=== PATIENT | male | born 1990 | race Caucasian/White ===

== ENCOUNTER 2022-09-09 15:11 | Emergency (ER) | payer OTHER ==
--- NOTE | 2022-09-09 16:12 | ED Physician Documentation ---
PD HPI MAJOR TRAUMA - Stated complaint Stated Complaint: FALL/L LEG PAIN - Chief complaint Chief Complaint: Trauma Ext - History obtained from History obtained from: Patient, Friend, EMS - History of Present Illness Mechanism of injury: Fell Where injury occurred: Work Timing - onset: Today Injury(ies) location: Neck, Left Lower Extremity Quality of pain: Pain (mild) Associated symptoms: Neck pain. 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 The first line was still attached and slowed his descent. He landed on his right side and is complaining of some mild pain to the neck a 1 out of 10 and to some mild pain to the left calf where he has a bruise he rates this pain as a 4. He is able to ambulate he did not lose consciousness and he has had no difficulty breathing no nausea or vomiting. Review of Systems Constitutional: denies: Fever Eyes: denies: Decreased vision Ears: denies: Ear pain Nose: denies: Congestion Throat: denies: Sore throat Cardiac: denies: Chest pain / pressure, Palpitations Respiratory: denies: Dyspnea, Cough GI: denies: Abdominal Pain, Nausea, Vomiting, Constipation, Diarrhea : denies: Dysuria, Frequency Skin: denies: Rash Musculoskeletal: reports: Neck pain, Extremity pain. denies: Back pain Neurologic: denies: Generalized weakness, Focal weakness, Numbness PD PAST MEDICAL HISTORY - Allergies Allergies/Adverse Reactions: Allergies Allergy/AdvReac Type Severity Reaction Status Date / Time No Known Drug Allergies Allergy Verified 09/09/22 15:50 PD ED PE NORMAL - Vitals Vital signs reviewed: Yes - General General: Alert and oriented X 3, No acute distress, Well developed/nourished - HEENT HEENT: Atraumatic, PERRL, EOMI - Neck Neck: Supple, no meningeal sign, Other (minimal ) - Cardiac Cardiac: RRR, No murmur - Respiratory Respiratory: No respiratory distress, Clear bilaterally, Other (no chest wall tenderness) - Abdomen Abdomen: Normal bowel sounds, Soft, Non tender, Non distended, No organomegaly - Back Back: No CVA TTP, No spinal TTP - Derm Derm: Normal color, Warm and dry, No rash - Extremities Extremities: No deformity, No edema, Other (abrasion to the medial left calf tender. no bony tenderness. 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 If symptoms persist, follow-up with radiographs and/or CT may be helpful for further evaluation.), EMP read indepedently, See rad report CT cervical spine Radiology: Prelim report reviewed (Impression: No acute fracture is seen. No pneumothorax is seen at the lung apices), EMP read indepedently, See rad report Procedures - FAST exam (time) 1600 FAST exam: Other (No free fluid is found in R or L upper quadrant or in the pelvis. No pericardial effusion.) PD MEDICAL DECISION MAKING - ED course Complexity details: reviewed results, re-evaluated patient, considered differential, d/w patient, d/w family ED course: 32-year-old male with a fall of about 50 feet from a tree. His fall appears to h ave been slowed by branches on the way down as well as his belaying rope still being attached. This looks like he obviously had enough support during his fall that he is not injured. We did CT his neck and x-ray his leg despite what appeared to be minimal injury to either 1. I did do a FAST exam this was also negative. The patient does not appear to be in significant pain and despite a significant fall he appears like he and he was discharged to home. Departure - Departure Disposition: 01 Home, Self Care Clinical Impression: Fall from tree, initial encounter Contusion of left calf Qualifiers: Encounter type: initial encounter Qualified Code(s): S80.12XA - Contusion of left lower leg, initial encounter Cervical strain, acute Qualifiers: Encounter type: initial encounter Qualified Code(s): S16.1XXA - Strain of muscle, fascia and tendon at neck level, initial encounter Condition: Stable Instructions: Falls Job Prevent Follow-Up: Brigitte Fishman PA-C [Provider Admit Priv/Credential] - Comments: Srikanth, today it looks like you are "JAMIL HECK" We did not find an injury on todays exam. You may develop pains in other places and further evaluation may be indicated. I have provided and number for a follow up doctor in [place].
--- NOTE | 2022-09-09 16:37 | XRAY Report ---
PROCEDURE: Tib/Fib LT INDICATIONS: fall mid calf pain TECHNIQUE: 2 views of the tibia and fibula were acquired. COMPARISON: None FINDINGS: Bones: No fractures or dislocations. No suspicious bony lesions. Soft tissues: No suspicious soft tissue calcifications or masses. IMPRESSION: No acute osseous abnormality. If symptoms persist, follow-up radiographs and/or CT may be helpful for further evaluation. Reviewed by: Paul El MD on 09/09/2022 4:35 PM PDT Approved by: Paul El MD on 09/09/2022 4:35 PM PDT Station ID: [id number]
--- NOTE | 2022-09-09 17:05 | CT Report ---
PROCEDURE: CERVICAL SPINE WO INDICATIONS: fall 50ft mid cervical spine pain TECHNIQUE: Noncontrast 3 mm thick sections acquired from the skull base to the T4 level. Sagittal and coronal r eformats were then constructed. For radiation dose reduction, the following was used: automated exp osure control, adjustment of mA and/or kV according to patient size. COMPARISON: None. FINDINGS: Image quality: Excellent. Bones: No fractures or dislocations. Visualized superior ribs are intact. Soft tissues: Prevertebral soft tissues are normal in thickness. No paravertebral hematomas. No ap ical pneumothoraces. IMPRESSION: No acute fracture is seen. No pneumothorax is seen at the lung apices. Reviewed by: Marcin Reyes MD on 09/09/2022 4:04 PM MICHAEL Approved by: Marcin Reyes MD on 09/09/2022 4:04 PM MICHAEL Station ID: [id number]
[2022-09-09 17:30] VITALS: BP 110/60
== END 2022-09-09 17:31 | disposition home or self-care (01) ==
LOC: ED 15:11
DX: S80.12XA Contusion of left lower leg, initial encounter (principal); S16.1XXA Strain of muscle, fascia and tendon at neck level, initial encounter; W14.XXXA Fall from tree, initial encounter; Y99.0 Civilian activity done for income or pay
CPT/HCPCS: 1040M; 72125; 73590; 99282; 99284